=== PATIENT | male | born 1980 | race Caucasian/White ===

== ENCOUNTER 2016-05-25 23:59 | Emergency (ER) | payer OTHER ==
[2016-05-25 22:53] LABS: INFLUENZA A NEG (NEG); INFLUENZA B NEG (NEG)
[~2016-05-25 23:59] MED LIST: FLEXERIL PO; FLEXERIL10 MG PO; KETOPROFEN PO; ORUDIS75 M1 PO; VICODIN 5/500 T1 TAB PO
== END 2016-05-26 03:21 | disposition home or self-care (01) ==
LOC: CED 23:59
DX: J02.0 Streptococcal pharyngitis (principal)
CPT/HCPCS: 87804; 87880; 99282

== ENCOUNTER 2016-10-31 00:35 | Emergency (ER) | payer OTHER ==
[~2016-10-31] VITALS: Ht 177.8 cm; Wt 81.6 kg
--- NOTE | ~2016-10-31 | CR94 ---
[facility] A Service of [facility] / [facility] RADIOLOGY TEXT RESULTS PATIENT: LISSETTE NAVARRO LOCATION: SED : 76 UNIT #: [id number] AGE: [address]: Ken Fernandez DO SEX: M ORDER DR: [id number] [place] [id number] E MR#: [id number] Acc #: [id number] NAME: LISSETTE NAVARRO : 1980 SEX: M STUDY DATE/TIME: 10/31/2016 1:10 UNIT: SED ROOM: STUDY DESCRIPTION: CR Elbow Min 3 Views Rt Attending Physician: Ken Fernandez D.O.. Ordering Physician: Ken Fernandez D.O.. Primary Care Physician: No Primary Care Physician MEDICAL IMAGING REPORT This report is preliminary unless electronic signature is present. EXAM Right elbow series 10/31/2016 HISTORY 36-year-old male with history of IV drug abuse presenting to the ED with pain, redness and soft tissue swelling over the right anterior elbow. Possible needle fragment foreign bodies. TECHNIQUE Three-view right elbow series. FINDINGS Two tiny needle fragment foreign bodies are present within the soft tissues of the antecubital fossa. One of the views is superficially located in the subcutaneous soft tissues measuring about 6 mm in length. It is surrounded by soft tissue swelling, and there are several bubbles of soft tissue gas suggesting potential abscess. The second foreign body is somewhat deeper to the first measuring about 6 mm in size. No adjacent soft tissue gas. No additional foreign body. Osseous structures of the elbow appear normal. No visible joint effusion. IMPRESSION Two needle fragment foreign bodies in the antecubital fossa soft tissues as noted above. Soft tissue gas associated with the more superficial foreign body suggesting potential abscess. Dictated by... Andrew Johnston M.D. THIS IS AN ELECTRONICALLY VERIFIED REPORT Andrew Johnston M.D. at 11/01/2016 6:05 AM [facility] A Service of [facility] / [facility] RADIOLOGY TEXT RESULTS PATIENT: LISSETTE NAVARRO LOCATION: SED : 78 UNIT #: [id number] AGE: [address]: Ken Fernandez DO SEX: M ORDER DR: ISABELA/irina TD: 10/31/2016 23:47 JOB #: [id number] MEDICAL IMAGING REPORT Page 1 of 1
--- NOTE | ~2016-10-31 | CR93 ---
[facility] A Service of [facility] RADIOLOGY TEXT RESULTS PATIENT: LISSETTE NAVARRO LOCATION: SED : 78 UNIT #: [id number] AGE: [address]: Ken Fernandez DO SEX: M ORDER DR: [id number] [place] [address] [id number] E MR#: [id number] Acc #: [id number] NAME: LISSETTE NAVARRO : 1980 SEX: M STUDY DATE/TIME: 10/31/2016 1:10 UNIT: SED ROOM: STUDY DESCRIPTION: CR Elbow Min 3 Views Lt Attending Physician: Ken Fernandez D.O.. Ordering Physician: Ken Fernandez D.O.. Primary Care Physician: No Primary Care Physician MEDICAL IMAGING REPORT This report is preliminary unless electronic signature is present. EXAM Left elbow 10/31/2016 HISTORY 36-year-old male with history of IV drug abuse presenting to the ED complaining of pain swelling and redness over the anterior soft tissues of the elbow. Possible needle fragment foreign body. TECHNIQUE Three-view left elbow series. FINDINGS The examination shows a subcutaneous needle fragment foreign body in the antecubital soft tissues. No additional foreign body is seen. No visible soft tissue gas. Osseous structures of the elbow are unremarkable. IMPRESSION Subcutaneous needle fragment foreign body measuring about 8 mm in length in the antecubital fossa. Dictated by... Andrew Johnston M.D. THIS IS AN ELECTRONICALLY VERIFIED REPORT Andrew Johnston M.D. at 11/01/2016 6:05 AM ISABELA/irina TD: 10/31/2016 23:45 JOB #: [id number] MEDICAL IMAGING REPORT Page 1 of 1
== END 2016-10-31 03:01 | disposition home or self-care (01) ==
LOC: SED 00:35
DX: L02.413 Cutaneous abscess of right upper limb (principal)
CPT/HCPCS: 10060; 73080; 87070; 87205; 99283